=== PATIENT | female | born 1945 | race Caucasian/White ===

== ENCOUNTER 2017-09-21 07:03 | Emergency (ER) | payer MEDICARE, BC ==
[2017-09-21 07:22] VITALS: BP 151/77
--- NOTE | 2017-09-21 07:50 | UC ---
Skin Complaint HPI - HPI Summary HPI Summary: SEVERAL DAYS OF ITCHY RED RASH RIGHT UPPER EXTREMITY. WAS SETTING UP HER NABIL TREE PRIOR TO ONSET. STATES SHE HAS VERY SENSITIVE SKIN AND IS FEELING SIMILAR TO HOW SHE FEELS WHEN SHE GETS POISON GABRIEL - ACHY, SLIGHTLY CONGESTED. - History of Current Complaint Chief Complaint: UCRash Time Seen by Provider: 09/21/17 07:17 Stated Complaint: RASH Hx Obtained From: Patient Onset/Duration: Gradual Onset, Lasting Days, Still Present Timing: Constant Onset Severity: Mild Current Severity: Mild Pain Intensity: 0 Pain Scale Used: 0-10 Numeric Location: Discrete - RIGHT UPPER EXTREMITY Character: Pruritus, Redness Aggravating Factor(s): Touch Alleviating Factor(s): Nothing Associated Signs & Symptoms: Positive: Rash Related History: Possible Reaction to: Environmental Exposure - Allergy/Home Medications Allergies/Adverse Reactions: Allergies Allergy/AdvReac Type Severity Reaction Status Date / Time Sulfa Drugs Allergy Severe Rash Verified 09/21/17 07:15 Review of Systems Constitutional: Negative Skin: Rash Respiratory: Negative Cardiovascular: Negative Gastrointestinal: Negative All Other Systems Reviewed And Are Negative: Yes PMH/Surg Hx/FS Hx/Imm Hx Psychological History: Anxiety - Surgical History Surgical History: Yes Surgery Procedure, Year, and Place: HYSTERECTOMY 1995;. back surgery - Family History Known Family History: Positive: Hypertension - Social History Alcohol Use: None Substance Use Type: None Smoking Status (MU): Former Smoker Type: Cigarettes Have You Smoked in the Last Year: No When Did the Patient Quit Smoking/Using Tobacco: 25 years ago Physical Exam Triage Information Reviewed: Yes Appearance: Well-Appearing, No Pain Distress, Well-Nourished Vital Signs: Initial Vital Signs Temp 98.1 F 09/21/17 07:15 Pulse 78 09/21/17 07:15 Resp 16 09/21/17 07:15 BP 151/77 09/21/17 07:15 Pulse Ox 98 09/21/17 07:15 Vital Signs Reviewed: Yes Eyes: Positive: Conjunctiva Clear ENT: Positive: Hearing grossly normal, Pharynx normal, TMs normal Neck: Positive: Supple, Nontender, No Lymphadenopathy Respiratory: Positive: No respiratory distress, No accessory muscle use Cardiovascular: Positive: Pulses Normal Abdomen Description: Positive: Soft Musculoskeletal: Positive: No Edema Neurological: Positive: Alert Psychological: Positive: Age Appropriate Behavior Skin: Positive: rashes - SEVERAL ERYTHEMATOUS SUBCENTIMETER LESIONS SCATTERED ON RIGHT UPPER EXTREMITY Course/Dx - Diagnoses Provider Diagnoses: CONTACT DERMATITIS Discharge - Discharge Plan Condition: Stable Disposition: HOME Prescriptions: Clobetasol Propionate 0.05 % TOPICAL BID PRN #1 tube PRN Reason: Itching predniSONE TAB* [Deltasone TAB*] 40 mg PO DAILY #10 tab Patient Education Materials: Contact Dermatitis (ED) Referrals: Tami Salazar MD [Primary Care Provider] - If Needed Additional Instructions: USE DAILY MOISTURIZING LOTION AVOID HEAT AND HOT WATER TAKE OTC ANTIHISTAMINE DAILY (CLARITIN (LORATADINE), ZYRTEC (CETIRIZINE) OR MARII (FEXOFENADINE) IN THE MORNING, 25-50MG BENADRYL AT NIGHT) DO NOT SCRATCH KEEP COOL, CLEAN AND DRY FOLLOW-UP WITH YOUR PCP IF NOT IMPROVING OVER THE NEXT WEEK OR SO. YOUR BLOOD PRESSURE WAS ELEVATED TODAY. THIS MAY BE DUE TO YOUR ACUTE CONDITION. MONITOR AND FOLLOW-UP WITH YOUR PCP WITHIN 4 WEEKS IF IT HAS NOT RETURNED TO NORMAL.
== END 2017-09-21 07:43 | disposition home or self-care (01) ==
LOC: UCEAST 07:03
DX: L25.9 Unspecified contact dermatitis, unspecified cause (principal); Z87.891 Personal history of nicotine dependence; Z88.2 Allergy status to sulfonamides
CPT/HCPCS: 99212; G0463

== ENCOUNTER 2018-04-17 07:14 | Emergency (ER) | payer MEDICARE, BC ==
[2018-04-17 07:31] VITALS: BP 128/81
--- NOTE | 2018-04-17 07:58 | UC ---
Skin Complaint HPI - History of Current Complaint Chief Complaint: UCRespiratory Time Seen by Provider: 04/17/18 07:48 Stated Complaint: SINUS COMPLAINT Pain Intensity: 0 - Allergy/Home Medications Allergies/Adverse Reactions: Allergies Allergy/AdvReac Type Severity Reaction Status Date / Time Sulfa (Sulfonamide Allergy Rash Verified 04/17/18 07:23 Antibiotics) PMH/Surg Hx/FS Hx/Imm Hx - Surgical History Surgical History: Yes Surgery Procedure, Year, and Place: HYSTERECTOMY 1995;. lumbar fusion 2015 - Family History Known Family History: Positive: Hypertension - Social History Alcohol Use: Occasionally Substance Use Type: None Smoking Status (MU): Former Smoker Type: Cigarettes Have You Smoked in the Last Year: No When Did the Patient Quit Smoking/Using Tobacco: 25 years ago Physical Exam Vital Signs: Initial Vital Signs Temp 98.4 F 04/17/18 07:21 Pulse 68 04/17/18 07:21 Resp 18 04/17/18 07:21 BP 128/81 04/17/18 07:21 Pulse Ox 97 04/17/18 07:21 Discharge - Discharge Plan Condition: Stable Disposition: HOME Prescriptions: Fluticasone NASAL SPRAY 50MCG* [Flonase NASAL SPRAY 50MCG*] 2 spray BOTH NARES BID #1 btl Patient Education Materials: Rhinosinusitis (ED) Referrals: Tami Salazar MD [Primary Care Provider] - 1 Week Additional Instructions: I don't find any convincing evidence of a sinus infection restart flonas recheck for new or worsening symptoms - Billing Disposition and Condition Condition: STABLE Disposition: Home
--- NOTE | 2018-04-17 08:02 | UC ---
Throat Pain/Nasal Woo HPI - HPI Summary HPI Summary: This is a 72-year-old female with a long-standing history of sinus problems. She states that she has run out of her Flonase. Daily she takes loratadine and does sinus rinses. The past week she has had increased sinus pressure and discomfort. She has chronic postnasal drip. Denies any muco-purulent discharge. He has no fever or chills. Has had no dental sensitivity or pain. He does have some mild malaise. - History of Current Complaint Chief Complaint: UCRespiratory Stated Complaint: SINUS COMPLAINT Time Seen by Provider: 04/17/18 07:48 Hx Obtained From: Patient Onset/Duration: Gradual Onset, Lasting Days Severity: Mild Pain Intensity: 0 Pain Scale Used: 0-10 Numeric Associated Signs & Symptoms: Positive: Sinus Discomfort - Allergies/Home Medications Allergies/Adverse Reactions: Allergies Allergy/AdvReac Type Severity Reaction Status Date / Time Sulfa (Sulfonamide Allergy Rash Verified 04/17/18 07:23 Antibiotics) PMH/Surg Hx/FS Hx/Imm Hx Previously Healthy: Yes Psychological History: Depression - Surgical History Surgical History: Yes Surgery Procedure, Year, and Place: HYSTERECTOMY 1995;. lumbar fusion 2015 - Family History Known Family History: Positive: Hypertension - Social History Alcohol Use: Occasionally Substance Use Type: None Smoking Status (MU): Former Smoker Type: Cigarettes Have You Smoked in the Last Year: No When Did the Patient Quit Smoking/Using Tobacco: 25 years ago Review of Systems Constitutional: Negative Skin: Negative Eyes: Negative ENT: Sinus Congestion Respiratory: Negative Cardiovascular: Negative Gastrointestinal: Negative Genitourinary: Negative Motor: Negative Neurovascular: Negative Musculoskeletal: Negative Neurological: Negative Psychological: Negative Is Patient Immunocompromised?: No All Other Systems Reviewed And Are Negative: Yes Physical Exam Triage Information Reviewed: Yes Appearance: Well-Appearing, No Pain Distress, Well-Nourished Vital Signs: Initial Vital Signs Temp 98.4 F 04/17/18 07:21 Pulse 68 04/17/18 07:21 Resp 18 04/17/18 07:21 BP 128/81 04/17/18 07:21 Pulse Ox 97 04/17/18 07:21 Vital Signs Reviewed: Yes Eyes: Positive: Conjunctiva Clear ENT: Positive: Nasal congestion, Sinus tenderness - mild max sinus tenderness. Negative: Hearing grossly normal - bilat hearing aids Neck: Positive: Supple, Nontender Respiratory: Positive: Lungs clear, Normal breath sounds, No respiratory distress, No accessory muscle use Cardiovascular: Positive: RRR, No Murmur Musculoskeletal: Positive: ROM Intact, No Edema Neurological: Positive: Alert Psychological Exam: Normal Skin Exam: Normal Throat Pain/Nasal Course/Dx - Differential Dx/Diagnosis Provider Diagnoses: sinus pressure with evidence of bacterial sinus infection Discharge - Sign-Out/Discharge Documenting (check all that apply): Discharge/Admit/Transfer - Discharge Plan Condition: Stable Disposition: HOME Prescriptions: Fluticasone NASAL SPRAY 50MCG* [Flonase NASAL SPRAY 50MCG*] 2 spray BOTH NARES BID #1 btl Patient Education Materials: Rhinosinusitis (ED) Referrals: Tami Salazar MD [Primary Care Provider] - 1 Week Additional Instructions: I don't find any convincing evidence of a sinus infection restart flonas recheck for new or worsening symptoms - Billing Disposition and Condition Condition: STABLE Disposition: Home
== END 2018-04-17 07:58 | disposition home or self-care (01) ==
LOC: UCEAST 07:14
DX: J32.9 Chronic sinusitis, unspecified (principal); F32.9 Major depressive disorder, single episode, unspecified; Z88.2 Allergy status to sulfonamides; Z82.49 Family history of ischemic heart disease and other diseases of the circulatory system; Z87.891 Personal history of nicotine dependence
CPT/HCPCS: 99212; G0463

== ENCOUNTER 2018-04-22 07:23 | Emergency (ER) | payer MEDICARE, BC ==
[2018-04-22 07:40] VITALS: BP 119/78
--- NOTE | 2018-04-22 07:42 | UC ---
Throat Pain/Nasal Woo HPI - HPI Summary HPI Summary: Pt is a 72 y/o F w/ c/o sinus pressure. Pt was at [facility] five days ago for same Sx. She states she was prescribed a steroid spray and nasal spray but reports no improvement in Sx and associated pain, which prompted today's visit. On triage, pain is rated 8/10. Onset of Sx was 04/13/18 according to pt. Pain is described as a pressure. Pt noted her sinuses started draining some time after onset, but pain was still present. Sore throat is currently present as well. Pt reports taking Tylenol with no pain relief as well as phenylephrine for children. She reports Zithromax normally helps. - History of Current Complaint Stated Complaint: SINUS PRESSURE Hx Obtained From: Patient Onset/Duration: Lasting Weeks - 1 week and 2 days, Still Present Severity: Severe Pain Intensity: 8 Pain Scale Used: 0-10 Numeric - 8/10 Associated Signs & Symptoms: Positive: Sinus Discomfort, Nasal Discharge, Other - sore throat - Allergies/Home Medications Allergies/Adverse Reactions: Allergies Allergy/AdvReac Type Severity Reaction Status Date / Time Sulfa (Sulfonamide Allergy Rash Verified 04/22/18 07:39 Antibiotics) PMH/Surg Hx/FS Hx/Imm Hx Endocrine History: Other Other Endocrine History: NEGATIVE: diabetes Cardiovascular History: Other Other Cardiovascular History: NEGATIVE: HTN Respiratory History: Other Other Respiratory History: NEGATIVE: COPD, asthma - Surgical History Surgical History: Yes Surgery Procedure, Year, and Place: HYSTERECTOMY 1995;. lumbar fusion 2015 - Family History Known Family History: Positive: Hypertension - Social History Alcohol Use: Occasionally Substance Use Type: None Smoking Status (MU): Former Smoker Type: Cigarettes Have You Smoked in the Last Year: No When Did the Patient Quit Smoking/Using Tobacco: 25 years ago Review of Systems Constitutional: Other - NEGATIVE: fever ENT: Sore Throat, Nasal Discharge, Sinus Pain/Tenderness All Other Systems Reviewed And Are Negative: Yes Physical Exam - Summary Physical Exam Summary: General: well-appearing, no pain distress Skin: warm, color reflects adequate perfusion, dry Head: normal Eyes: EOMI, DENILSON ENT: rhinorrhea is present Neck: supple, nontender Respiratory: CTA, breath sounds present Cardiovascular: RRR Abdomen: soft, nontender Bowel: present Musculoskeletal: normal, strength/ROM intact Neurological: sensory/motor intact, A&O x3 Psychological: affect/mood appropriate Triage Information Reviewed: Yes Vital Signs: Initial Vital Signs Temp 97.4 F 04/22/18 07:36 Pulse 76 04/22/18 07:36 Resp 18 04/22/18 07:36 BP 119/78 04/22/18 07:36 Pulse Ox 98 04/22/18 07:36 Vital Signs Reviewed: Yes Throat Pain/Nasal Course/Dx - Differential Dx/Diagnosis Provider Diagnoses: SINUSITIS Discharge - Sign-Out/Discharge Documenting (check all that apply): Patient Departure - Discharge Plan Condition: Stable Disposition: HOME Prescriptions: Amoxicillin/Clavulanate TAB* [Augmentin TAB 875*] 875 mg PO BID #20 tab Patient Education Materials: Sinusitis (ED) Referrals: Tami Salazar MD [Primary Care Provider] - Additional Instructions: FOLLOW UP WITH YOUR DOCTOR. GET RECHECKED FOR ANY WORSENING OF YOUR CONDITION OR QUESTIONS OR CONCERNS. - Billing Disposition and Condition Condition: STABLE Disposition: Home
== END 2018-04-22 07:45 | disposition home or self-care (01) ==
LOC: UCEAST 07:23
DX: J32.9 Chronic sinusitis, unspecified (principal); Z88.2 Allergy status to sulfonamides; Z82.49 Family history of ischemic heart disease and other diseases of the circulatory system; Z87.891 Personal history of nicotine dependence
CPT/HCPCS: 99212; G0463